=== PATIENT | female | born 1960 | race Caucasian/White ===

== ENCOUNTER → 2016-06-24 | Day surgery (SDC) | payer BC ==
[~2016-06-24] VITALS: Ht 157.5 cm; Wt 103.9 kg
[~2016-06-24] MED LIST: ALLEGRA ALLERG180 MG PO; AUGMENTIN TAB875 MG PO; CLARITIN10 MG PO; CLEOCIN HCL75 MG PO; ESTRACE0.5 MG PO; FENOGLIDE40 MG PO; FLONASE ALLER15.8 ML INH; HYDROCHLOROTHIA25 MG PO; IRON18 MG PO; LEVOXYL25 MCG PO; NORCO 7.5-3251 EACH PO; OMEGA 3 FISH O1 EACH PO; POTASSIUM CHLO10 MEQ PO; TOPROL XL100 MG PO; TRAMADOL HCL50 MG PO; VITAMIN B-12500 MCG PO; VITAMIN D400 UNIT PO
[2016-06-24 06:54] LABS: HEMOGLOBIN 15.2 gm/dl (12.3-15.3); RED BLOOD COUNT 4.92 M/UL (4.00-5.10); WHITE BLOOD COUNT 5.6 K/UL (4.5-11.0)
[2016-06-24 07:29] LABS: BUN/CREATININE RATIO 24 (0-10)
== END | disposition home or self-care (01) ==
LOC: OR 06:16
PROVIDERS: Orthopaedic Surgery
PROC: 01N50ZZ Release Median Nerve, Open Approach (ICD-10-PCS; principal; 2016-06-24 07:45)
DX: G56.02 Carpal tunnel syndrome, left upper limb (principal); I10 Essential (primary) hypertension; E07.9 Disorder of thyroid, unspecified; E78.1 Pure hyperglyceridemia; M19.90 Unspecified osteoarthritis, unspecified site; Z79.899 Other long term (current) drug therapy; Z82.49 Family history of ischemic heart disease and other diseases of the circulatory system
CPT/HCPCS: 80048; 85027; J0690; J1100; J2250; J2405; J2765; J3010; J7120

== ENCOUNTER → 2021-11-06 | Outpatient (CLI) | payer BC ==
[~2021-11-06] MED LIST changes: +DOXYCYCLINE HY100 MG PO; +IBUPROFEN200 M1 PO; +KEFLEX500 MG PO; +PROBIOTIC1 EAC1 PO; +SINGULAIR10 MG PO; +SYNTHROID125 MCG PO; +VITAMIN C1000 MG PO; +VITAMIN D PO
== END ==
LOC: EXRD 12:55
DX: M79.662 Pain in left lower leg (principal)
CPT/HCPCS: 93926; 93971

== ENCOUNTER → 2021-12-24 | Outpatient (CLI) | payer BC | LOC: EXRD 15:30 | DX: S02.2XXA Fracture of nasal bones, initial encounter for closed fracture (principal) | CPT/HCPCS: 70160 ==